=== PATIENT | female | born 1950 | race African-American/Black ===

== ENCOUNTER 2024-06-02 14:39 | Emergency (ER) | payer OTHER ==
[2024-06-02 14:50] VITALS: BP 170/93; PULSE 75; RESP 17; TEMP 98.6; BMI 23.6
[2024-06-02] MEDS ORDERED: ACETAMINOPHEN INJECTION 100 ML ONE (15:41)
[2024-06-02] MEDS ORDERED: ONDANSETRON 4 MG/2 ML VIAL ONE (15:42)
[2024-06-02 15:45] LABS: ABSOLUTE IMMATURE GRANULOCYTES 0.03 x10^3/uL (0.0-0.031); BASOPHILS # 0.04 x10^3/uL (0.01-0.08); EOSINOPHILS # 0.27 x10^3/uL (0.04-0.36); HEMATOCRIT 42.6 % (34.1-44.9); MCHC 32.9 g/dl (32.2-35.5); MEAN CELL VOLUME 87.5 fl (79.4-94.8); MEAN PLT VOLUME 8.9 fl (9.4-12.3); MONOCYTE # 0.67 x10^3/uL (0.24-0.86); MONOCYTE % 7.3 % (4.7-12.5); PLATELET COUNT 495 x10^3/uL (182-369); RDW 13.3 % (12.4-16.6)
[2024-06-02 16:06] LABS: POTASSIUM 4.1 mmol/L (3.5-5.1)
[2024-06-02 16:08] LABS: CALCIUM 9.9 mg/dL (8.5-10.1)
[2024-06-02] MEDS: ACETAMINOPHEN 1000 MG/100 ML BAG IVPB ONE (16:08)
[2024-06-02 16:09] LABS: PH,URINE 6.5 (5.0-8.0); URINE APPEARANCE CLEAR; URINE BILIRUBIN NEGATIVE (NEGATIVE); URINE COLOR YELLOW; URINE GLUCOSE (UA) NEGATIVE (NEGATIVE); URINE KETONE NEGATIVE (NEGATIVE); URINE LEUK ESTERASE NEGATIVE (NEGATIVE); URINE NITRITE NEGATIVE (NEGATIVE); URINE PROTEIN NEGATIVE (NEGATIVE); URINE UROBILINOGEN 0.2 mg/dL (0.2-1.0)
[2024-06-02 16:09] LABS: ALBUMIN 3.7 g/dl (3.4-5.0); BLOOD UREA NITROGEN 9.2 mg/dL (7-18); MAGNESIUM 2.4 mg/dL (1.8-2.4)
[2024-06-02 16:11] LABS: CREATININE 0.8 mg/dL (0.55-1.3); PHOSPHOROUS 3.1 mg/dL (2.5-4.9)
[2024-06-02] MEDS: ONDANSETRON 4 MG/2 ML VIAL IVPUSH ONE (16:11)
[2024-06-02 16:13] LABS: BILIRUBIN,TOTAL 0.6 mg/dL (0.2-1)
[2024-06-02 16:14] LABS: TOT PROT 7.4 g/dl (6.4-8.2)
== END 2024-06-02 19:49 | disposition home or self-care (01) ==
LOC: JER 14:39
PROC: 3E033NZ Introduction of Analgesics, Hypnotics, Sedatives into Peripheral Vein, Percutaneous Approach (ICD-10-PCS; principal; 2024-06-02)
PROC: 3E033GC Introduction of Other Therapeutic Substance into Peripheral Vein, Percutaneous Approach (ICD-10-PCS; 2024-06-02)
DX: R53.1 Weakness (principal); B34.9 Viral infection, unspecified; R05.9 Cough, unspecified; R63.0 Anorexia; R09.89 Other specified symptoms and signs involving the circulatory and respiratory systems; R11.0 Nausea; R53.81 Other malaise
CPT/HCPCS: 0241U-QW; 36415; 71045-TC-FY; 80053; 81003; 83735; 84100; 84484; 85025; 87086; 87186; 93005; 93010; 96374; 96375; 99285-25; J0131